=== PATIENT | male | born 1975 | race Caucasian/White ===

== ENCOUNTER 2017-02-07 11:04 | Inpatient (IN) | payer SELFPAY ==
[~2017-02-07] VITALS: Ht 162.6 cm; Wt 102.1 kg
[2017-02-07] MEDS ORDERED: FAMOTIDINE 20MG/2ML VIAL IV STA (11:24)
[2017-02-07] MEDS ORDERED: SODIUM CHLORIDE 0.9% 1,000 ML IV ONE (11:24)
[2017-02-07] MEDS ORDERED: ONDANSETRON HCL 4MG/2ML VIAL IV STA (11:24)
[2017-02-07] MEDS ORDERED: MORPHINE SULFATE 4 MG/ML CPJ (NOT FOR IM USE) IV STA (11:24)
[2017-02-07 12:44] LABS: BASOPHILS % 0.7 % (0.0-2.0); EOSINOPHILS % 1.1 % (0.0-5.0); HEMATOCRIT. 44.9 % (42.0-52.0); HEMOGLOBIN. 15.5 g/dL (14.0-18.0); LYMPHOCYTES % 18.3 % (20.0-50.0); MEAN CORPUSCULAR HEMOGLOBIN 29.8 pg (28.0-32.0); MEAN CORPUSCULAR HGB CONC 34.5 g/dL (31.0-37.0); MEAN CORPUSCULAR VOLUME 86.5 fL (80.0-94.0); MEAN PLATELET VOLUME 7.6 fl (7.4-10.4); MONOCYTES % 8.7 % (2.0-8.0); NEUTROPHILS % 71.2 % (40.0-76.0); PLATELET 325 x1000/uL (130-400); RED BLOOD CELL COUNT 5.19 mill/uL (4.7-6.1); RED CELL DISTRIBUTION WIDTH 13.7 % (11.6-14.6); WHITE BLOOD COUNT 10.7 x1000/uL (4.5-11.0)
[2017-02-07 12:52] LABS: INR 1.1; PROTHROMBIN TIME 11.3 sec
[2017-02-07 13:01] LABS: ALANINE AMINOTRANSFERASE 49 IU/L (13-61); ALBUMIN 3.8 g/dL (3.4-5.0); ANION GAP 15; CALCIUM 8.5 mg/dL (8.5-10.1); CARBON DIOXIDE 25 mEq/L (21-32); CHLORIDE 103 mEq/L (98-107); ETHANOL BLOOD < 10 mg/dL; INDEX HEMOLYSI 1 (1-3); INDEX ICTERIC 1 (1-4); INDEX LIPEMIC 1 (1-3); TROPONIN I < 0.02 ng/mL (0.00-0.04); UREA NITROGEN BLOOD 12 mg/dL (7-21); eGFR > 60 mL/min (>60)
[2017-02-07 13:05] LABS: LIPASE 1757 IU/L (73-393)
[2017-02-07] MEDS ORDERED: IOHEXOL-300 100 ML BOTTLE ONE (13:16)
[2017-02-07] MEDS ORDERED: SODIUM CHLORIDE 0.9% 10ML VIAL ONE (13:16)
[2017-02-07 13:44] LABS: CLARITY URINE CLEAR (CLEAR); COLOR URINE YELLOW (YELLOW); GLUCOSE URINE NEGATIVE (NEGATIVE); KETONES URINE NEGATIVE (NEGATIVE); LEUKOCYTE ESTERASE URINE NEGATIVE (NEGATIVE); NITRITE URINE NEGATIVE (NEGATIVE); OCCULT BLOOD URINE NEGATIVE (NEGATIVE); PH URINE 6.5 (4.5-8.0); PROTEIN URINE NEGATIVE (NEGATIVE); SPECIFIC GRAVITY URINE 1.024 (1.005-1.030); UROBILINOGEN URINE 0.2 E.U./dL (0.2-1.0)
[2017-02-07] MEDS ORDERED: GADOBENATE DIMEGLUMINE 529 MG/ML 10ML IV ONE (13:52)
[2017-02-07] MEDS ORDERED: CLONIDINE 0.1MG TABLET PO PRN (15:45)
[2017-02-07] MEDS ORDERED: LORAZEPAM 2MG/ML CPJ IV PRN (15:45)
[2017-02-07] MEDS ORDERED: GUAIFENESIN 200MG/10ML SUGAR FREE UDC PO PRN (15:45)
[2017-02-07] MEDS ORDERED: ZOLPIDEM TARTRATE 5MG TABLET PO PRN (15:45)
[2017-02-07] MEDS ORDERED: TRAMADOL 50MG TABLET PO PRN (15:45)
[2017-02-07] MEDS ORDERED: MORPHINE SULFATE 2 MG/ML CPJ (NOT FOR IM USE) IV PRN (15:45)
[2017-02-07] MEDS ORDERED: NA PHOS,M-B/NA PHOS,DI-BA ENEMA 118ML PR PRN (15:45)
[2017-02-07] MEDS ORDERED: ACETAMINOPHEN 325MG TABLET PO PRN (15:45)
[2017-02-07] MEDS ORDERED: ONDANSETRON HCL 4MG/2ML VIAL IV PRN (15:45)
[2017-02-07] MEDS ORDERED: IPRATROPIUM/ALBUTEROL 0.5-3(2.5)MG/3ML NEB INH PRN (15:45)
[2017-02-07] MEDS ORDERED: MAGNESIUM/ALUMINUM HYDROXIDE/SIMETHICONE 30ML UDC PO PRN (15:45)
[2017-02-07] MEDS ORDERED: DOCUSATE SODIUM 100MG CAPSULE PO PRN (15:45)
[2017-02-07 16:00] VITALS: BP 125/83
[2017-02-07 16:27] LABS: HEPATITIS B SURFACE ANTIGEN NEGATIVE
[2017-02-07 16:55] LABS: HEPATITIS C VIR.AB 0.12 INDEXVAL (0.00-0.80)
[2017-02-07 16:56] LABS: HEPATITIS B CORE AB IGM NEGATIVE
[2017-02-07 16:57] LABS: HEPATITIS A AB IGM NEGATIVE (NEGATIVE)
[2017-02-07 20:00] VITALS: BP 106/79
[2017-02-07] MEDS: DEXT 5%/0.45% NACL 1000ML 1,000 ML IV SCH (20:37)
[2017-02-07 21:01] VITALS: BP 106/79
[2017-02-08] VITALS: BP 103/66
[2017-02-08] MEDS: DEXT 5%/0.45% NACL 1000ML 1,000 ML IV SCH (05:27)
[2017-02-08 08:00] VITALS: BP 106/69
[2017-02-08] MEDS ORDERED: PANTOPRAZOLE SODIUM 40 MG/VIAL IV SCH (09:00)
[2017-02-08 12:03] LABS: BASOPHILS % 0.9 % (0.0-2.0); EOSINOPHILS % 1.4 % (0.0-5.0); HEMATOCRIT. 44.5 % (42.0-52.0); HEMOGLOBIN. 15.3 g/dL (14.0-18.0); LYMPHOCYTES % 21.2 % (20.0-50.0); MEAN CORPUSCULAR HEMOGLOBIN 29.5 pg (28.0-32.0); MEAN CORPUSCULAR HGB CONC 34.3 g/dL (31.0-37.0); MEAN CORPUSCULAR VOLUME 85.8 fL (80.0-94.0); MEAN PLATELET VOLUME 7.9 fl (7.4-10.4); MONOCYTES % 7.8 % (2.0-8.0); NEUTROPHILS % 68.7 % (40.0-76.0); PLATELET 316 x1000/uL (130-400); RED BLOOD CELL COUNT 5.18 mill/uL (4.7-6.1); RED CELL DISTRIBUTION WIDTH 13.3 % (11.6-14.6); WHITE BLOOD COUNT 8.8 x1000/uL (4.5-11.0)
[2017-02-08 12:14] LABS: ALANINE AMINOTRANSFERASE 46 IU/L (13-61); ANION GAP 16; CALCIUM 9.4 mg/dL (8.5-10.1); CARBON DIOXIDE 24 mEq/L (21-32); CHLORIDE 102 mEq/L (98-107); INDEX HEMOLYSI 1 (1-3); INDEX ICTERIC 1 (1-4); INDEX LIPEMIC 1 (1-3); UREA NITROGEN BLOOD 11 mg/dL (7-21); eGFR > 60 mL/min (>60)
[2017-02-08 13:15] VITALS: BP 120/70
[2017-02-10 08:13] LABS: CA 15-3 12.6 U/mL (0.0-25.0); CA 27.29 8.1 U/mL (0.0-38.6); CANCER ANTIGEN 125 10.6 U/mL (.)
== END 2017-02-08 16:40 | disposition home or self-care (01) | DRG 136 ==
LOC: ER 11:51 → 6EST 14:46
PROVIDERS: ADMIT Internal Medicine; ATTEND Internal Medicine
DX: C34.90 Malignant neoplasm of unspecified part of unspecified bronchus or lung (principal); K85.90 Acute pancreatitis without necrosis or infection, unspecified; C78.7 Secondary malignant neoplasm of liver and intrahepatic bile duct; R16.0 Hepatomegaly, not elsewhere classified; I10 Essential (primary) hypertension; F32.9 Major depressive disorder, single episode, unspecified; R91.8 Other nonspecific abnormal finding of lung field
CPT/HCPCS: 36415; 71260; 74022; 74177; 74183; 76705; 80053; 81003; 82378; 83690; 84484; 85025; 85610; 85730; 86300; 86301; 86304; 86705; 86709; 86803; 87340; 93005; 93970; 96361; 96374; 96375; 99285; A4216; A9577; C9113; G0482; J2270; J2405; J3490; J7030; Q9967